=== PATIENT | female | born 1965 | race Caucasian/White ===

== ENCOUNTER → 2020-10-02 | Outpatient (CLI) | payer OTHER ==
[~2020-10-02] MED LIST: BACTRIM DS TAB1 EACH PO; KEFLEX CAP 500500 MG PO; LODINE CAP 300300 MG PO
== END ==
LOC: EXRD 08:52
DX: R94.5 Abnormal results of liver function studies (principal); K76.0 Fatty (change of) liver, not elsewhere classified
CPT/HCPCS: 76705

== ENCOUNTER → 2021-01-28 | Outpatient (CLI) | payer OTHER | LOC: EMI 10:37 | DX: G44.89 Other headache syndrome (principal); G43.009 Migraine without aura, not intractable, without status migrainosus | CPT/HCPCS: 70551 ==

== ENCOUNTER 2021-03-15 17:32 | Emergency (ER) | payer OTHER ==
[2021-03-15 18:29] LABS: RED BLOOD COUNT 4.99 M/UL (4.00-5.10); WHITE BLOOD COUNT 8.2 K/UL (4.5-11.0)
[2021-03-15 18:55] LABS: BUN/CREATININE RATIO 17 (0-10)
== END 2021-03-15 20:35 | disposition home or self-care (01) ==
LOC: ER1 17:32
PROVIDERS: Physician Assistant Medical
DX: E11.65 Type 2 diabetes mellitus with hyperglycemia (principal); R79.89 Other specified abnormal findings of blood chemistry
CPT/HCPCS: 80053; 82009; 82962; 85025; 93005; 96374; 99285

== ENCOUNTER → 2021-05-24 | Outpatient (CLI) | payer OTHER ==
[2021-05-24 09:21] LABS: HEMOGLOBIN 14.9 gm/dl (12.3-15.3); RED BLOOD COUNT 4.72 M/UL (4.00-5.10)
[2021-05-25 07:10] LABS: A/G RATIO 1.5 (1.2-2.2); ALKALINE PHOSPHATASE, S 106 IU/L (44-121); ALT (SGPT) 51 IU/L (0-32); AST (SGOT) 36 IU/L (0-40); BILIRUBIN, TOTAL 0.6 mg/dL (0.0-1.2); BUN 8 mg/dL (6-24); BUN/CREATININE RATIO 10 (9-23); CALCIUM, SERUM 9.5 mg/dL (8.7-10.2); CARBON DIOXIDE, TOTAL 21 mmol/L (20-29); CHLORIDE, SERUM 102 mmol/L (96-106); CHOLESTEROL, TOTAL 227 mg/dL (100-199); CREATININE, SERUM 0.84 mg/dL (0.57-1.00); EGFR IF AFRICN AM 91 (>59); EGFR IF NONAFRICN AM 79 (>59); ESTIM. AVG GLU (EAG) 212 mg/dL (.); GLOBULIN, TOTAL 2.8 g/dL (1.5-4.5); GLUCOSE, SERUM 172 mg/dL (65-99); HDL CHOLESTEROL 45 mg/dL (>39); LDL CHOLESTEROL CALC 153 mg/dL (0-99); LDL/HDL RATIO 3.4 ratio (0.0-3.2); POTASSIUM, SERUM 4.4 mmol/L (3.5-5.2); PROTEIN, TOTAL, SERUM 6.9 g/dL (6.0-8.5); SODIUM, SERUM 139 mmol/L (134-144); TRIGLYCERIDES 161 mg/dL (0-149)
[2021-05-25 08:13] LABS: VITAMIN D, 25-HYDROXY 31.4 ng/mL (30.0-100.0)
[2021-05-25 09:13] LABS: CREATININE, URINE 88.2 mg/dL (Not Estab.)
== END ==
LOC: LAB 08:29
PROVIDERS: Physician Assistant
DX: E55.9 Vitamin D deficiency, unspecified (principal); E11.9 Type 2 diabetes mellitus without complications; R53.83 Other fatigue
CPT/HCPCS: 36415; 80053; 80061; 82043; 82570; 82607; 83036; 84439; 84443; 85025

== ENCOUNTER → 2021-09-14 | Outpatient (CLI) | payer OTHER | LOC: RAD 08:50 | DX: R10.9 Unspecified abdominal pain (principal) | CPT/HCPCS: 74018 ==

== ENCOUNTER → 2021-09-24 | Outpatient (CLI) | payer OTHER | LOC: EXRD 09:00 | DX: R10.13 Epigastric pain (principal); K76.0 Fatty (change of) liver, not elsewhere classified | CPT/HCPCS: 76700 ==